=== PATIENT | male | born 1955 | race Caucasian/White ===

== ENCOUNTER → 2021-03-15 | Outpatient (CLI) | payer MEDICARE, BC ==
[2021-03-15 12:07] LABS: HEMOGLOBIN A1c 8.2 %
[2021-03-15 12:34] LABS: ALBUMIN 3.8 GM/DL (3.2-5.2); ALT/SGPT 41 U/L (12-78); BILIRUBIN,TOTAL 0.4 MG/DL (0.2-1.0); BLOOD UREA NITROGEN 13 MG/DL (7-18); CALCIUM LEVEL 9.5 MG/DL (8.8-10.2); CARBON DIOXIDE LEVEL 26 MEQ/L (21-32); CHLORIDE LEVEL 104 MEQ/L (98-107); CHOLESTEROL LEVEL 96 MG/DL (<200); CREATININE FOR GFR 0.57 MG/DL (0.70-1.30); FOLATE 7.4 NG/ML; GLOMERULAR FILTRATION RATE > 60.0 (>49); GLUCOSE, FASTING 183 MG/DL (70-100); HDL CHOLESTEROL 40 MG/DL (>40); LDL CHOLESTEROL 37 MG/DL (<100); NON-HDL-C 56 MG/DL; POTASSIUM SERUM 4.1 MEQ/L (3.5-5.1); SODIUM LEVEL 136 MEQ/L (136-145); TOTAL PROTEIN 7.1 GM/DL (6.4-8.2); TRIGLYCERIDES LEVEL 94 MG/DL (<150); VITAMIN B12 LEVEL 250 PG/ML
== END ==
LOC: M WUC 09:48
PROVIDERS: ATTEND Nurse Practitioner Family
DX: Z00.00 Encounter for general adult medical examination without abnormal findings (principal); E78.2 Mixed hyperlipidemia; E11.9 Type 2 diabetes mellitus without complications; I10 Essential (primary) hypertension

== ENCOUNTER → 2021-03-15 | Outpatient (CLI) | payer MEDICARE, BC ==
[2021-03-15 11:45] LABS: BASO # 0.1 10^3/uL (0.0-0.2); BASO % 0.7 % (0.0-1.0); EOS # 0.4 10^3/uL (0.0-0.5); EOS % 3.4 % (0.0-3.0); HEMATOCRIT 47.5 % (42.0-52.0); HEMOGLOBIN 14.4 g/dl (13.5-17.5); LYMPH % 16.2 % (24.0-44.0); MEAN CORPUSCULAR HGB CONC 30.3 g/dl (32.0-36.5); MEAN CORPUSCULAR VOLUME 79.3 fl (80.0-96.0); MONO # 1.2 10^3/uL (0.0-0.8); MONO % 9.5 % (2.0-8.0); NEUTROPHILS # 8.6 10^3/uL (1.5-8.5); NEUTROPHILS % 69.8 % (36.0-66.0); PLATELET COUNT, AUTOMATED 280 10^3/uL (150-450); RED BLOOD COUNT 5.99 10^6/uL (4.30-6.10); WHITE BLOOD COUNT 12.3 10^3/uL (4.0-10.0)
[2021-03-15 12:31] LABS: ALBUMIN 3.7 GM/DL (3.2-5.2); ALT/SGPT 43 U/L (12-78); BILIRUBIN,DIRECT 0.2 MG/DL (0.0-0.2); BILIRUBIN,TOTAL 0.4 MG/DL (0.2-1.0); BLOOD UREA NITROGEN 15 MG/DL (7-18); CARBON DIOXIDE LEVEL 27 MEQ/L (21-32); CHLORIDE LEVEL 104 MEQ/L (98-107); CHOLESTEROL LEVEL 98 MG/DL (<200); CHOLESTEROL RISK RATIO 2.512 (<5); CREATININE FOR GFR 0.56 MG/DL (0.70-1.30); GLOMERULAR FILTRATION RATE > 60.0 (>49); GLUCOSE, FASTING 184 MG/DL (70-100); HDL CHOLESTEROL 39 MG/DL (>40); HEPATITIS B SURFACE ANTIBODY NEGATIVE (POSITIVE); LDL CHOLESTEROL 41 MG/DL (<100); NON-HDL-C 59 MG/DL; POTASSIUM SERUM 4.2 MEQ/L (3.5-5.1); SODIUM LEVEL 137 MEQ/L (136-145); TOTAL PROTEIN 7.1 GM/DL (6.4-8.2); TRIGLYCERIDES LEVEL 89 MG/DL (<150)
[2021-03-15 12:36] LABS: HEPATITIS B SURFACE ANTIGEN NEGATIVE (NEGATIVE)
== END ==
LOC: M WUC 09:52
PROVIDERS: ATTEND Physician Assistant
DX: L40.0 Psoriasis vulgaris (principal); E78.2 Mixed hyperlipidemia; E11.9 Type 2 diabetes mellitus without complications; I10 Essential (primary) hypertension

== ENCOUNTER → 2021-04-27 | Outpatient (CLI) | payer MEDICARE, BC ==
--- NOTE | 2021-04-27 10:31 | REP ---
INDICATION: CONTUSION OF RIGHT FOOT, INITIAL ENCOUNTER COMPARISON: None. TECHNIQUE: AP, lateral, bilateral oblique views right foot. FINDINGS: There is a transverse nondisplaced fracture through the base of the 5th toe proximal phalanx. Remainder of the examination demonstrates age-related osteopenia and degenerative changes. IMPRESSION: Fracture at the base of the 5th toe proximal phalanx.. <Electronically signed by Dandre Moore > 04/27/21 1026
== END ==
LOC: M PLAIMG 09:18
PROVIDERS: ATTEND Family Medicine
DX: S90.31XA Contusion of right foot, initial encounter (principal); W18.30XA Fall on same level, unspecified, initial encounter; Y92.009 Unspecified place in unspecified non-institutional (private) residence as the place of occurrence of the external cause

== ENCOUNTER → 2021-10-19 | Outpatient (REF) | payer MEDICARE, BC ==
[2021-10-19 18:45] LABS: CREATININE, URINE 51.1 MG/DL; MALB URINE SIEMENS 9.1 MG/L; MAU/CREAT RATIO 17.8 MCG/MG (0.0-30.0)
== END ==
LOC: M LAB REF 17:11
PROVIDERS: ATTEND Internal Medicine Endocrinology, Diabetes & Metabolism
DX: E11.65 Type 2 diabetes mellitus with hyperglycemia (principal)

== ENCOUNTER → 2022-08-24 | Outpatient (CLI) | payer MEDICARE | LOC: M PLAIMG 09:59 | PROVIDERS: ATTEND Nurse Practitioner Family | DX: S10.93XA Contusion of unspecified part of neck, initial encounter (principal); V89.2XXA Person injured in unspecified motor-vehicle accident, traffic, initial encounter ==

== ENCOUNTER → 2022-10-13 | Outpatient (CLI) | payer MEDICARE ==
[2022-10-13 11:21] LABS: BASO # 0.1 10^3/uL (0.0-0.2); BASO % 0.5 % (0.0-1.0); EOS # 0.5 10^3/uL (0.0-0.5); EOS % 4.3 % (0.0-3.0); HEMATOCRIT 40.4 % (42.0-52.0); HEMOGLOBIN 12.7 g/dl (13.5-17.5); LYMPH # 2.4 10^3/uL (1.5-5.0); LYMPH % 20.3 % (24.0-44.0); MEAN CORPUSCULAR HEMOGLOBIN 24.5 pg (27.0-33.0); MEAN CORPUSCULAR HGB CONC 31.4 g/dl (32.0-36.5); MONO # 0.9 10^3/uL (0.0-0.8); MONO % 7.9 % (2.0-8.0); NEUTROPHILS # 7.8 10^3/uL (1.5-8.5); NEUTROPHILS % 66.4 % (36.0-66.0); PLATELET COUNT, AUTOMATED 278 10^3/uL (150-450); RED BLOOD COUNT 5.18 10^6/uL (4.30-6.10); WHITE BLOOD COUNT 11.7 10^3/uL (4.0-10.0)
[2022-10-13 11:34] LABS: ALBUMIN 3.5 G/DL (3.2-5.2); BLOOD UREA NITROGEN 13 MG/DL (9-23); CALCIUM LEVEL 8.8 MG/DL (8.3-10.6); CARBON DIOXIDE LEVEL 28 MMOL/L (20-31); CHLORIDE LEVEL 104 MMOL/L (98-107); CREATININE FOR GFR 0.45 MG/DL (0.70-1.30); GLOMERULAR FILTRATION RATE > 60.0 (>49); GLUCOSE, FASTING 261 MG/DL (74-106); POTASSIUM SERUM 4.3 MMOL/L (3.5-5.1); SODIUM LEVEL 136 MMOL/L (136-145)
[2022-10-13 12:07] LABS: HIV 1&2 SCREEN CENTAUR NEGATIVE (NEGATIVE)
== END ==
LOC: M LAB 10:07
PROVIDERS: ATTEND Nurse Practitioner Family
DX: Z79.899 Other long term (current) drug therapy (principal)

== ENCOUNTER → 2022-10-17 | Outpatient (CLI) | payer MEDICARE | LOC: M RAD 10:35 | PROVIDERS: ATTEND Nurse Practitioner Family | DX: Z87.891 Personal history of nicotine dependence (principal) ==

== ENCOUNTER → 2023-02-12 | Outpatient (CLI) | payer MEDICARE ==
[2023-02-12 11:01] LABS: ALBUMIN 3.9 G/DL (3.2-5.2); ALKALINE PHOSPHATASE 119 U/L (46-116); ALT/SGPT 12 U/L (7.0-40); AST/SGOT 12 U/L (<34); BILIRUBIN,TOTAL 0.4 MG/DL (0.3-1.2); BLOOD UREA NITROGEN 10 MG/DL (9-23); CALCIUM LEVEL 9.2 MG/DL (8.3-10.6); CARBON DIOXIDE LEVEL 30 MMOL/L (20-31); CHLORIDE LEVEL 103 MMOL/L (98-107); CHOLESTEROL LEVEL 95 MG/DL (<200); CHOLESTEROL RISK RATIO 3.03 (<5); CREATININE FOR GFR 0.53 MG/DL (0.70-1.30); GLOMERULAR FILTRATION RATE > 60.0 (>49); GLUCOSE, FASTING 167 MG/DL (74-106); HDL CHOLESTEROL 31.3 MG/DL (>40); LDL CHOLESTEROL 40.7 MG/DL (<100); NON-HDL-C 63.7 MG/DL; POTASSIUM SERUM 4.6 MMOL/L (3.5-5.1); SODIUM LEVEL 138 MMOL/L (136-145); TOTAL PROTEIN 6.8 G/DL (5.7-8.2); TRIGLYCERIDES LEVEL 115 MG/DL (<150)
== END ==
LOC: M LAB 09:54
PROVIDERS: ATTEND Nurse Practitioner Family
DX: E78.2 Mixed hyperlipidemia (principal)

== ENCOUNTER → 2023-02-28 | Outpatient (CLI) | payer MEDICARE ==
[~2023-02-28] MED LIST: ISOVUE-370 76% 100ML VIAL As Ordered ONE
== END ==
LOC: M RAD 08:25
PROVIDERS: ATTEND Nurse Practitioner Family
DX: R91.1 Solitary pulmonary nodule (principal)
CPT/HCPCS: 71260; Q9967

== ENCOUNTER → 2023-08-26 | Outpatient (CLI) | payer MEDICARE ==
[2023-08-26 13:54] LABS: ALBUMIN 3.6 G/DL (3.2-5.2); ALKALINE PHOSPHATASE 173 U/L (46-116); ALT/SGPT 14 U/L (7.0-40); AST/SGOT 10 U/L (<34); BILIRUBIN,DIRECT 0.2 MG/DL (<0.4); BILIRUBIN,TOTAL 0.4 MG/DL (0.3-1.2); BLOOD UREA NITROGEN 11 MG/DL (9-23); CALCIUM LEVEL 8.9 MG/DL (8.3-10.6); CARBON DIOXIDE LEVEL 29 MMOL/L (20-31); CHLORIDE LEVEL 103 MMOL/L (98-107); CHOLESTEROL LEVEL 96 MG/DL (<200); CHOLESTEROL RISK RATIO 2.97 (<5); CREATININE FOR GFR 0.51 MG/DL (0.70-1.30); GLOMERULAR FILTRATION RATE > 60.0 (>49); GLUCOSE, FASTING 331 MG/DL (74-106); HDL CHOLESTEROL 32.3 MG/DL (>40); LDL CHOLESTEROL 47.9 MG/DL (<100); NON-HDL-C 63.7 MG/DL; POTASSIUM SERUM 4.3 MMOL/L (3.5-5.1); SODIUM LEVEL 140 MMOL/L (136-145); TOTAL PROTEIN 6.5 G/DL (5.7-8.2); TRIGLYCERIDES LEVEL 79 MG/DL (<150)
[2023-08-26 13:55] LABS: HEPATITIS B SURFACE ANTIBODY NEGATIVE (POSITIVE)
[2023-08-26 13:57] LABS: BASO # 0.1 10^3/uL (0.0-0.2); BASO % 0.5 % (0.0-1.0); EOS # 0.5 10^3/uL (0.0-0.5); EOS % 4.3 % (0.0-3.0); HEMOGLOBIN 14.5 g/dl (13.5-17.5); LYMPH # 2.2 10^3/uL (1.5-5.0); LYMPH % 19.5 % (24.0-44.0); MEAN CORPUSCULAR HEMOGLOBIN 24.5 pg (27.0-33.0); MEAN CORPUSCULAR HGB CONC 31.5 g/dl (32.0-36.5); MEAN CORPUSCULAR VOLUME 77.8 fl (80.0-96.0); MONO # 1.1 10^3/uL (0.0-0.8); MONO % 9.3 % (2.0-8.0); NEUTROPHILS # 7.4 10^3/uL (1.5-8.5); PLATELET COUNT, AUTOMATED 287 10^3/uL (150-450); RED BLOOD COUNT 5.91 10^6/uL (4.30-6.10); WHITE BLOOD COUNT 11.3 10^3/uL (4.0-10.0)
[2023-08-26 14:30] LABS: HEPATITIS C VIRUS ABY INDEX 0.04 INDEX (<0.8)
[2023-08-27 08:10] LABS: HEPATITIS B CORE ANTIBODY IGG Negative (Negative); LDL DIRECT 53 mg/dL (0-99)
== END ==
LOC: M PLALAB 09:27
PROVIDERS: ATTEND Physician Assistant
DX: L40.0 Psoriasis vulgaris (principal)

== ENCOUNTER → 2024-02-06 | Outpatient (CLI) | payer MEDICARE ==
[2024-02-06 11:32] LABS: MALB URINE SIEMENS < 3.0 MG/L
[2024-02-06 11:35] LABS: CREATININE, URINE 56.4 MG/DL; MAU/CREAT RATIO 5.3 MCG/MG (0.0-30.0)
[2024-02-06 11:53] LABS: ALBUMIN 3.5 G/DL (3.2-5.2); ALKALINE PHOSPHATASE 102 U/L (46-116); ALT/SGPT 12 U/L (7.0-40); AST/SGOT 12 U/L (<34); BILIRUBIN,TOTAL 0.4 MG/DL (0.3-1.2); BLOOD UREA NITROGEN 8 MG/DL (9-23); CALCIUM LEVEL 8.9 MG/DL (8.3-10.6); CARBON DIOXIDE LEVEL 29 MMOL/L (20-31); CHLORIDE LEVEL 105 MMOL/L (98-107); CHOLESTEROL LEVEL 76 MG/DL (<200); CHOLESTEROL RISK RATIO 2.66 (<5); CREATININE FOR GFR 0.48 MG/DL (0.70-1.30); GLOMERULAR FILTRATION RATE > 60.0 (>49); GLUCOSE, FASTING 247 MG/DL (74-106); HDL CHOLESTEROL 28.5 MG/DL (>40); LDL CHOLESTEROL 29.5 MG/DL (<100); NON-HDL-C 47.5 MG/DL; POTASSIUM SERUM 4.3 MMOL/L (3.5-5.1); SODIUM LEVEL 139 MMOL/L (136-145); TOTAL PROTEIN 6.3 G/DL (5.7-8.2); TRIGLYCERIDES LEVEL 90 MG/DL (<150)
== END ==
LOC: M LAB 10:17
PROVIDERS: ATTEND Nurse Practitioner Family
DX: E78.2 Mixed hyperlipidemia (principal)

== ENCOUNTER → 2024-03-12 | Outpatient (CLI) | payer MEDICARE ==
[2024-03-12 12:50] LABS: BASO # 0.1 10^3/uL (0.0-0.2); BASO % 0.7 % (0.0-1.0); EOS # 0.2 10^3/uL (0.0-0.5); EOS % 2.7 % (0.0-3.0); HEMATOCRIT 47.4 % (42.0-52.0); HEMOGLOBIN 14.9 g/dl (13.5-17.5); LYMPH # 1.5 10^3/uL (1.5-5.0); LYMPH % 20.6 % (24.0-44.0); MEAN CORPUSCULAR HEMOGLOBIN 24.5 pg (27.0-33.0); MEAN CORPUSCULAR HGB CONC 31.4 g/dl (32.0-36.5); MEAN CORPUSCULAR VOLUME 78.1 fl (80.0-96.0); MONO # 1.6 10^3/uL (0.0-0.8); MONO % 22.9 % (2.0-8.0); NEUTROPHILS # 3.8 10^3/uL (1.5-8.5); NEUTROPHILS % 52.8 % (36.0-66.0); PLATELET COUNT, AUTOMATED 282 10^3/uL (150-450); RED BLOOD COUNT 6.07 10^6/uL (4.30-6.10); WHITE BLOOD COUNT 7.2 10^3/uL (4.0-10.0)
[2024-03-12 13:23] LABS: ALBUMIN 3.4 G/DL (3.2-5.2); ALKALINE PHOSPHATASE 104 U/L (46-116); ALT/SGPT 12 U/L (7.0-40); AST/SGOT 14 U/L (<34); BILIRUBIN,TOTAL 0.5 MG/DL (0.3-1.2); BLOOD UREA NITROGEN 13 MG/DL (9-23); CALCIUM LEVEL 8.9 MG/DL (8.3-10.6); CARBON DIOXIDE LEVEL 26 MMOL/L (20-31); CHLORIDE LEVEL 105 MMOL/L (98-107); CREATININE FOR GFR 0.58 MG/DL (0.70-1.30); GLOMERULAR FILTRATION RATE > 60.0 (>49); GLUCOSE, FASTING 173 MG/DL (74-106); POTASSIUM SERUM 3.6 MMOL/L (3.5-5.1); SODIUM LEVEL 138 MMOL/L (136-145); TOTAL PROTEIN 6.4 G/DL (5.7-8.2)
== END ==
LOC: M PLALAB 08:36
PROVIDERS: ATTEND Nurse Practitioner Family
DX: R19.7 Diarrhea, unspecified (principal)

== ENCOUNTER → 2024-03-13 | Outpatient (CLI) | payer MEDICARE | LOC: M RAD 09:31 | PROVIDERS: ATTEND Nurse Practitioner Family | DX: R19.7 Diarrhea, unspecified (principal) ==

== ENCOUNTER 2024-06-19 09:15 | Inpatient (IN) | payer MEDICARE ==
[~2024-06-19] VITALS: Ht 193 cm; Wt 96.2 kg
[2024-06-19] MEDS ORDERED: JARD1TAB3 PO (09:25)
[2024-06-19] MEDS ORDERED: ATOR80TA59 PO (09:25)
[2024-06-19] MEDS ORDERED: [UNRECOGNIZED DRUG - CODE] (09:25)
[2024-06-19] MEDS ORDERED: GLIM1TAB84 PO (09:25)
[2024-06-19] MEDS ORDERED: GABA-1171 PO (09:25)
[2024-06-19] MEDS: ONDANSETRON 4MG 2ML VIAL IV ONE (09:57)
[2024-06-19] MEDS: MORPHINE 4 MG/ML 1ML VIAL IV ONE (09:57)
[2024-06-19 10:18] LABS: BASO # 0.1 10^3/uL (0.0-0.2); BASO % 0.5 % (0.0-1.0); EOS # 0.3 10^3/uL (0.0-0.5); EOS % 2.1 % (0.0-3.0); HEMATOCRIT 45.5 % (42.0-52.0); HEMOGLOBIN 14.5 g/dl (13.5-17.5); LYMPH # 1.6 10^3/uL (1.5-5.0); LYMPH % 12.9 % (24.0-44.0); MEAN CORPUSCULAR HEMOGLOBIN 24.9 pg (27.0-33.0); MEAN CORPUSCULAR HGB CONC 31.9 g/dl (32.0-36.5); NEUTROPHILS # 9.6 10^3/uL (1.5-8.5); NEUTROPHILS % 75.5 % (36.0-66.0); PLATELET COUNT, AUTOMATED 254 10^3/uL (150-450); RED BLOOD COUNT 5.83 10^6/uL (4.30-6.10); WHITE BLOOD COUNT 12.7 10^3/uL (4.0-10.0)
[2024-06-19 10:39] LABS: INR 1.07; PARTIAL THROMBOPLASTIN TIME 26.4 SECONDS (24.8-34.2); PROTHROMBIN TIME 13.6 SECONDS (12.5-14.5)
[2024-06-19 10:45] LABS: BLOOD UREA NITROGEN 13 MG/DL (9-23); CALCIUM LEVEL 9.2 MG/DL (8.3-10.6); CARBON DIOXIDE LEVEL 26 MMOL/L (20-31); CHLORIDE LEVEL 105 MMOL/L (98-107); CREATININE FOR GFR 0.44 MG/DL (0.70-1.30); GLOMERULAR FILTRATION RATE > 60.0 (>49); GLUCOSE, FASTING 341 MG/DL (74-106); POTASSIUM SERUM 4.7 MMOL/L (3.5-5.1); SODIUM LEVEL 135 MMOL/L (136-145)
[2024-06-19] MEDS: KETOROLAC 30 MG/ML 1ML VIAL IV ONE (11:59)
[2024-06-19] MEDS: INSULIN LISPRO (NovoLOG) PER UNIT SC SCH ×2 (12:00→20:07)
[2024-06-19] MEDS: NS 1,000 ML IV ONE (12:21)
[2024-06-19] MEDS ORDERED: DEXTROSE 50% 50ML SYRINGE IV PRN (12:45)
[2024-06-19] MEDS ORDERED: MAALOX 30 ML SUSP *UDC PO PRN (12:45)
[2024-06-19] MEDS: NS 1,000 ML IV SCH (12:45)
[2024-06-19] MEDS ORDERED: GLUCAGON INJ 1MG VIAL SC PRN (12:45)
[2024-06-19] MEDS ORDERED: GLUCOSE 4 GM CHEW PO PRN (12:45)
[2024-06-19] MEDS ORDERED: MOM 30ML SUSPENSION UDC PO PRN (12:45)
[2024-06-19] MEDS ORDERED: INSU100I24 SQ (13:01)
[2024-06-19] MEDS ORDERED: ECOT81TA5 PO (13:02)
[2024-06-19] MEDS ORDERED: HOME MED LIST COMPLETE! XX SCH (13:15)
[2024-06-19] MEDS: MORPHINE 4 MG/ML 1ML VIAL IV PRN (14:15)
[2024-06-19 14:35] VITALS: BP 131/80; TEMP 97.3; O2SAT 96
[2024-06-19] MEDS: DOCUSATE SODIUM 100MG CAPSULE PO SCH (15:29)
[2024-06-19] MEDS: HEPARIN SOD (PORCINE) 5000UNITS/ML 1ML VIAL/SYRINGE SC SCH (15:30)
[2024-06-19] MEDS: ASPIRIN 81MG ENTERIC TABLET PO SCH (15:30)
[2024-06-19] MEDS: GABAPENTIN 100 MG CAP PO SCH (15:30)
[2024-06-19] MEDS: ACETAMINOPHEN TAB 650MG DOSE (2X325MG) PO PRN (16:26)
[2024-06-19] MEDS: ATORVASTATIN 20 MG TAB PO SCH (20:07)
[2024-06-19 20:27] VITALS: BP 125/65; TEMP 97.5; O2SAT 91
[2024-06-20] VITALS (9 sets, daily range): BP systolic 105–116; BP diastolic 59–64; TEMP 97.2–98.2; O2SAT 89–95
[2024-06-20 06:49] LABS: BASO % 0.4 % (0.0-1.0); EOS # 0.2 10^3/uL (0.0-0.5); EOS % 2.1 % (0.0-3.0); HEMATOCRIT 40.1 % (42.0-52.0); HEMOGLOBIN 12.8 g/dl (13.5-17.5); LYMPH # 1.2 10^3/uL (1.5-5.0); LYMPH % 12.8 % (24.0-44.0); MEAN CORPUSCULAR HEMOGLOBIN 24.9 pg (27.0-33.0); MEAN CORPUSCULAR HGB CONC 31.9 g/dl (32.0-36.5); MEAN CORPUSCULAR VOLUME 77.9 fl (80.0-96.0); MONO # 1.1 10^3/uL (0.0-0.8); MONO % 11.2 % (2.0-8.0); NEUTROPHILS # 7.1 10^3/uL (1.5-8.5); NEUTROPHILS % 73.2 % (36.0-66.0); PLATELET COUNT, AUTOMATED 210 10^3/uL (150-450); RED BLOOD COUNT 5.15 10^6/uL (4.30-6.10); WHITE BLOOD COUNT 9.6 10^3/uL (4.0-10.0)
[2024-06-20 07:18] LABS: BLOOD UREA NITROGEN 10 MG/DL (9-23); CALCIUM LEVEL 8.3 MG/DL (8.3-10.6); CARBON DIOXIDE LEVEL 26 MMOL/L (20-31); CHLORIDE LEVEL 108 MMOL/L (98-107); CREATININE FOR GFR 0.43 MG/DL (0.70-1.30); GLOMERULAR FILTRATION RATE > 60.0 (>49); GLUCOSE, FASTING 177 MG/DL (74-106); MAGNESIUM LEVEL 1.8 MG/DL (1.8-2.4); POTASSIUM SERUM 4.1 MMOL/L (3.5-5.1); SODIUM LEVEL 138 MMOL/L (136-145)
[2024-06-20] MEDS ORDERED: HYDROmorphone HCL 2MG/ML 1ML VIAL As Ordered ONE (13:44)
[2024-06-20] MEDS ORDERED: ACETAMINOPHEN 1000MG 100ML IV BAG As Ordered ONE (13:44)
[2024-06-20] MEDS ORDERED: ONDANSETRON 4MG 2ML VIAL As Ordered ONE (13:44)
[2024-06-20] MEDS ORDERED: ROCURONIUM BROMIDE 50MG/5ML VIAL As Ordered ONE (13:44)
[2024-06-20] MEDS ORDERED: fentaNYL 100 MCG/2 ML INJECTION As Ordered ONE (13:44)
[2024-06-20] MEDS ORDERED: MIDAZOLAM INJ 2MG/2ML VIAL As Ordered ONE (13:45)
[2024-06-20] MEDS ORDERED: KETAMINE HCL 200MG/20ML VIAL As Ordered ONE (13:45)
[2024-06-20] MEDS: ceFAZolin 2 GM/D5W 50 ML IV BAG As Ordered ONE (14:57)
[2024-06-20] MEDS: TRANEXAMIC ACID 100 MG/ML 10ML VIAL As Ordered ONE (15:05)
[2024-06-20] MEDS ORDERED: PHENYLephrine 500MCG 5ML (100MCG/ML) SYRINGE As Ordered ONE (15:14)
[2024-06-20] MEDS ORDERED: SUGAMMADEX SODIUM 500 MG/5 ML VIAL (BRIDION) As Ordered ONE (15:24)
[2024-06-20] MEDS ORDERED: ePHEDrine SULFATE 25 MG/5 ML(5MG/ML) SYRINGE As Ordered ONE (16:04)
[2024-06-20] MEDS ORDERED: CALCIUM CHLORIDE 10% 1 GM/10 ML SYR As Ordered ONE (17:26)
[2024-06-20] MEDS ORDERED: PHENYLEPHRINE 10MG/ML 1ML VIAL As Ordered ONE (17:27)
[2024-06-20] MEDS: VANCOMYCIN 1000MG/20ML VIAL As Ordered ONE (18:15)
[2024-06-20] MEDS ORDERED: METOCLOPRAMIDE INJ 10MG/2ML VIAL IV PRN (18:30)
[2024-06-20] MEDS ORDERED: MEPERIDINE 25 MG/ML 1ML VIAL IV PRN (18:30)
[2024-06-20] MEDS ORDERED: ONDANSETRON 4MG 2ML VIAL IV PRN (18:30)
[2024-06-20] MEDS ORDERED: oxyCODONE 5MG TAB PO PRN (18:30)
[2024-06-20] MEDS ORDERED: fentaNYL 100 MCG/2 ML INJECTION IV PRN (18:30)
[2024-06-20] MEDS ORDERED: diphenhydrAMINE 50MG/ML VIAL IV PRN (18:30)
[2024-06-20] MEDS ORDERED: HYDROMORPHONE HCL 0.5 MG/ 0.5 ML SYRINGE IV PRN (18:30)
[2024-06-20] MEDS ORDERED: GLUCOSE 4 GM CHEW PO PRN (18:50)
[2024-06-20] MEDS ORDERED: ceFAZolin SOD 2 GM in IV 1 EA IV SCH (18:50)
[2024-06-20] MEDS ORDERED: DEXTROSE 50% 50ML SYRINGE IV PRN (18:50)
[2024-06-20] MEDS ORDERED: GLUCAGON INJ 1MG VIAL SC PRN (18:50)
[2024-06-20] MEDS ORDERED: SENNA 8.6 MG TAB (SENOKOT) PO PRN (18:50)
[2024-06-20] MEDS: INSULIN LISPRO (NovoLOG) PER UNIT SC PRN (18:55)
[2024-06-20 19:05] LABS: HEMATOCRIT 35.6 % (42.0-52.0); HEMOGLOBIN 11.1 g/dl (13.5-17.5)
[2024-06-20] MEDS: ceFAZolin SOD 2 GM in IV 1 EA IV SCH (21:28)
[2024-06-20] MEDS: ASPIRIN 81MG ENTERIC TABLET PO SCH (21:30)
[2024-06-20] MEDS: LR 1,000 ML IV SCH (21:56)
[2024-06-20] MEDS ORDERED: LANTINJ4 SC (22:22)
[2024-06-20] MEDS ORDERED: ZOLO100T PO (22:22)
[2024-06-20] MEDS: ONDANSETRON 4MG 2ML VIAL IV PRN (23:40)
[2024-06-21] MEDS: ACETAMINOPHEN TAB 650MG DOSE (2X325MG) PO SCH
[2024-06-21 00:30] VITALS: BP 105/59; TEMP 97.7; O2SAT 95
[2024-06-21 04:30] VITALS: BP 108/59; TEMP 98.1; O2SAT 95
[2024-06-21] MEDS ORDERED: MIRALAX *UNIT DOSE* 17GM PACKET PO PRN (07:10)
[2024-06-21] MEDS ORDERED: MOM 30ML SUSPENSION UDC PO PRN (07:10)
[2024-06-21 07:17] LABS: BASO % 0.2 % (0.0-1.0); EOS % 0.1 % (0.0-3.0); HEMATOCRIT 30.7 % (42.0-52.0); HEMOGLOBIN 9.6 g/dl (13.5-17.5); LYMPH # 0.7 10^3/uL (1.5-5.0); LYMPH % 5.6 % (24.0-44.0); MEAN CORPUSCULAR HEMOGLOBIN 24.9 pg (27.0-33.0); MEAN CORPUSCULAR HGB CONC 31.3 g/dl (32.0-36.5); MEAN CORPUSCULAR VOLUME 79.7 fl (80.0-96.0); MONO % 14.9 % (2.0-8.0); NEUTROPHILS # 10.4 10^3/uL (1.5-8.5); NEUTROPHILS % 78.6 % (36.0-66.0); PLATELET COUNT, AUTOMATED 186 10^3/uL (150-450); RED BLOOD COUNT 3.85 10^6/uL (4.30-6.10); WHITE BLOOD COUNT 13.2 10^3/uL (4.0-10.0)
[2024-06-21] MEDS: PERCOCET 5MG/325MG TAB PO PRN (07:31)
[2024-06-21] MEDS ORDERED: MORPHINE 2 MG/ML 1ML VIAL IV PRN (07:35)
[2024-06-21 07:48] LABS: BLOOD UREA NITROGEN 9 MG/DL (9-23); CALCIUM LEVEL 7.6 MG/DL (8.3-10.6); CARBON DIOXIDE LEVEL 20 MMOL/L (20-31); CHLORIDE LEVEL 107 MMOL/L (98-107); CREATININE FOR GFR 0.42 MG/DL (0.70-1.30); GLOMERULAR FILTRATION RATE > 60.0 (>49); GLUCOSE, FASTING 213 MG/DL (74-106); MAGNESIUM LEVEL 1.5 MG/DL (1.8-2.4); SODIUM LEVEL 135 MMOL/L (136-145)
[2024-06-21] MEDS: SENOKOT S TAB PO SCH (08:04)
[2024-06-21] MEDS: ASCORBIC ACID 500 MG TAB PO SCH (08:04)
[2024-06-21] MEDS: FERROUS SULFATE 325MG TAB PO SCH (08:04)
[2024-06-21] MEDS: LIDOCAINE 5% (LIDODERM) PATCH TD SCH (08:05)
[2024-06-21 08:18] VITALS: BP 103/59; TEMP 97.2; O2SAT 92
[2024-06-21] MEDS: MAG SULF 1GM/100ML (MAG RUN) 1 GM in IV 1 EA IV SCH (09:49)
[2024-06-21 12:00] VITALS: BP 110/58; TEMP 97.3; O2SAT 96
[2024-06-21 20:39] VITALS: BP 113/59; TEMP 97.7; O2SAT 93
[2024-06-21] MEDS: CEFDINIR 300 MG CAP (OMNICEF) PO SCH (20:55)
[2024-06-22 04:03] VITALS: BP 113/59; TEMP 97.7; O2SAT 92
[2024-06-22 06:12] LABS: BASO % 0.2 % (0.0-1.0); EOS # 0.1 10^3/uL (0.0-0.5); EOS % 0.8 % (0.0-3.0); HEMATOCRIT 27.2 % (42.0-52.0); HEMOGLOBIN 8.6 g/dl (13.5-17.5); LYMPH # 0.8 10^3/uL (1.5-5.0); LYMPH % 7.6 % (24.0-44.0); MEAN CORPUSCULAR HEMOGLOBIN 25.3 pg (27.0-33.0); MEAN CORPUSCULAR HGB CONC 31.6 g/dl (32.0-36.5); MONO # 1.8 10^3/uL (0.0-0.8); NEUTROPHILS # 8.2 10^3/uL (1.5-8.5); NEUTROPHILS % 74.6 % (36.0-66.0); PLATELET COUNT, AUTOMATED 169 10^3/uL (150-450)
[2024-06-22 06:32] LABS: BLOOD UREA NITROGEN 11 MG/DL (9-23); CARBON DIOXIDE LEVEL 23 MMOL/L (20-31); CHLORIDE LEVEL 104 MMOL/L (98-107); CREATININE FOR GFR 0.46 MG/DL (0.70-1.30); GLOMERULAR FILTRATION RATE > 60.0 (>49); GLUCOSE, FASTING 171 MG/DL (74-106); MAGNESIUM LEVEL 1.8 MG/DL (1.8-2.4); POTASSIUM SERUM 3.8 MMOL/L (3.5-5.1); SODIUM LEVEL 133 MMOL/L (136-145)
[2024-06-22] MEDS: VITAMIN D 1,000 INTERNATIONAL UNITS TABLET PO SCH (08:37)
[2024-06-22 12:00] VITALS: BP 118/60; TEMP 97.7; O2SAT 94
[2024-06-22] MEDS: MAG SULF 1GM/100ML (MAG RUN) 1 GM in IV 1 EA IV ONE (13:13)
[2024-06-22] MEDS ORDERED: CYCLOBENZAPRINE 10MG TABLET PO PRN (16:55)
[2024-06-22] MEDS: NS 1,000 ML IV SCH (17:17)
[2024-06-22 20:00] VITALS: BP 123/61; TEMP 98.1; O2SAT 92
[2024-06-23 04:04] VITALS: BP 123/62; TEMP 98.1; O2SAT 94
[2024-06-23] MEDS: SUCRALFATE SUSP 1GM/10ML UD PO SCH (08:58)
[2024-06-23] MEDS: PANTOPRAZOLE 40MG VIAL IV SCH (08:59)
[2024-06-23 09:08] LABS: BASO % 0.3 % (0.0-1.0); EOS % 0.4 % (0.0-3.0); HEMATOCRIT 27.2 % (42.0-52.0); HEMOGLOBIN 8.6 g/dl (13.5-17.5); LYMPH # 0.8 10^3/uL (1.5-5.0); MEAN CORPUSCULAR HEMOGLOBIN 25.4 pg (27.0-33.0); MEAN CORPUSCULAR HGB CONC 31.6 g/dl (32.0-36.5); MEAN CORPUSCULAR VOLUME 80.2 fl (80.0-96.0); MONO # 1.4 10^3/uL (0.0-0.8); MONO % 13.9 % (2.0-8.0); NEUTROPHILS # 7.5 10^3/uL (1.5-8.5); NEUTROPHILS % 76.5 % (36.0-66.0); PLATELET COUNT, AUTOMATED 201 10^3/uL (150-450); RED BLOOD COUNT 3.39 10^6/uL (4.30-6.10); WHITE BLOOD COUNT 9.8 10^3/uL (4.0-10.0)
[2024-06-23 09:37] LABS: BLOOD UREA NITROGEN 11 MG/DL (9-23); CALCIUM LEVEL 7.9 MG/DL (8.3-10.6); CARBON DIOXIDE LEVEL 23 MMOL/L (20-31); CHLORIDE LEVEL 105 MMOL/L (98-107); CREATININE FOR GFR 0.38 MG/DL (0.70-1.30); GLOMERULAR FILTRATION RATE > 60.0 (>49); GLUCOSE, FASTING 194 MG/DL (74-106); MAGNESIUM LEVEL 1.8 MG/DL (1.8-2.4); POTASSIUM SERUM 3.6 MMOL/L (3.5-5.1); SODIUM LEVEL 138 MMOL/L (136-145)
[2024-06-23] MEDS: MAG SULF 1GM/100ML (MAG RUN) 1 GM in IV 1 EA IV ONE (11:36)
[2024-06-23] MEDS: LACTULOSE 20GM/30ML SYRUP UDC PO SCH (11:36)
[2024-06-23 12:00] VITALS: BP 122/63; TEMP 97.2; O2SAT 95
[2024-06-23 19:50] VITALS: BP 121/63; TEMP 97.9; O2SAT 96
[2024-06-23] MEDS: PERCOCET 5MG/325MG TAB PO PRN (21:28)
[2024-06-24 05:03] VITALS: BP 129/63; TEMP 97.5; O2SAT 97
[2024-06-24 06:14] LABS: BASO % 0.3 % (0.0-1.0); EOS # 0.2 10^3/uL (0.0-0.5); EOS % 2.6 % (0.0-3.0); HEMATOCRIT 25.5 % (42.0-52.0); HEMOGLOBIN 8.2 g/dl (13.5-17.5); LYMPH # 1.2 10^3/uL (1.5-5.0); LYMPH % 16.4 % (24.0-44.0); MEAN CORPUSCULAR HEMOGLOBIN 25.3 pg (27.0-33.0); MEAN CORPUSCULAR HGB CONC 32.2 g/dl (32.0-36.5); MEAN CORPUSCULAR VOLUME 78.7 fl (80.0-96.0); NEUTROPHILS # 4.9 10^3/uL (1.5-8.5); NEUTROPHILS % 66.9 % (36.0-66.0); PLATELET COUNT, AUTOMATED 206 10^3/uL (150-450); RED BLOOD COUNT 3.24 10^6/uL (4.30-6.10); WHITE BLOOD COUNT 7.3 10^3/uL (4.0-10.0)
[2024-06-24 06:44] LABS: BLOOD UREA NITROGEN 10 MG/DL (9-23); CARBON DIOXIDE LEVEL 29 MMOL/L (20-31); CHLORIDE LEVEL 106 MMOL/L (98-107); CREATININE FOR GFR 0.36 MG/DL (0.70-1.30); GLOMERULAR FILTRATION RATE > 60.0 (>49); GLUCOSE, FASTING 199 MG/DL (74-106); MAGNESIUM LEVEL 1.8 MG/DL (1.8-2.4); POTASSIUM SERUM 3.4 MMOL/L (3.5-5.1); SODIUM LEVEL 139 MMOL/L (136-145)
[2024-06-24] MEDS: POTASSIUM CHLORIDE 10MEQ SR TABLET PO ONE (08:12)
[2024-06-24 12:00] VITALS: BP 118/56; TEMP 97.9; O2SAT 98
[2024-06-24] MEDS: LEVEMIR (INSULIN DETEMIR) 1 UNITS/0.01ML SC SCH (12:13)
[2024-06-24] MEDS ORDERED: VITAD1000T PO (14:40)
[2024-06-24] MEDS ORDERED: PERCOCET PO (14:40)
[2024-06-24] MEDS ORDERED: PROT1TAB2 PO (14:40)
[2024-06-24] MEDS ORDERED: FERR1TAB8 PO (14:40)
[2024-06-24] MEDS ORDERED: SENN-52 PO (14:40)
[2024-06-24] MEDS ORDERED: SUCR1ORA PO (14:40)
[2024-06-24] MEDS ORDERED: INSUHUMDS SC (14:40)
[2024-06-24] MEDS ORDERED: INSUDET SC (14:40)
[2024-06-24] MEDS ORDERED: ASPI81TAEC PO (14:40)
[2024-06-24] MEDS ORDERED: CEFD300CAP PO (14:40)
[2024-06-24] MEDS ORDERED: CYCL10TA20 PO (14:40)
[2024-06-24] MEDS ORDERED: ASCO50TA PO (14:40)
== END 2024-06-24 16:35 | DRG 522 ==
LOC: M ED 09:15 → M ED INP 12:42 → M MS5PR 14:32
PROVIDERS: ADMIT Internal Medicine; ATTEND Internal Medicine
PROC: 0SRB0JZ Replacement of Left Hip Joint with Synthetic Substitute, Open Approach (ICD-10-PCS; principal; 2024-06-20 09:00)
DX: S72.042A Displaced fracture of base of neck of left femur, initial encounter for closed fracture (principal); S32.050A Wedge compression fracture of fifth lumbar vertebra, initial encounter for closed fracture; S32.040A Wedge compression fracture of fourth lumbar vertebra, initial encounter for closed fracture; S32.030A Wedge compression fracture of third lumbar vertebra, initial encounter for closed fracture; E87.1 Hypo-osmolality and hyponatremia; E11.42 Type 2 diabetes mellitus with diabetic polyneuropathy; E78.5 Hyperlipidemia, unspecified; F41.9 Anxiety disorder, unspecified; L40.9 Psoriasis, unspecified; J44.9 Chronic obstructive pulmonary disease, unspecified; F17.210 Nicotine dependence, cigarettes, uncomplicated; V86.49XA Person injured while boarding or alighting from other special all-terrain or other off-road motor vehicle, initial encounter; D64.9 Anemia, unspecified; E83.42 Hypomagnesemia; Z79.899 Other long term (current) drug therapy; Z79.84 Long term (current) use of oral hypoglycemic drugs; K59.00 Constipation, unspecified; E87.6 Hypokalemia; E11.65 Type 2 diabetes mellitus with hyperglycemia; X58.XXXA Exposure to other specified factors, initial encounter; Y92.9 Unspecified place or not applicable

== ENCOUNTER 2024-06-24 15:50 | Inpatient (IN) | payer MEDICARE ==
[~2024-06-24] VITALS: Ht 193 cm; Wt 93.1 kg
[~2024-06-24 15:50] MED LIST changes: +ASCO50TA PO; +ASPI81TAEC PO; +ATOR80TA59 PO; +CEFD300CAP PO; +CYCL10TA20 PO; +ECOT81TA5 PO; +FERR1TAB8 PO; +GABA-1171 PO; +GLIM1TAB84 PO; +INSU100I24 SQ; +INSUDET SC; +INSUHUMDS SC; -ISOVUE-370 76% 100ML VIAL As Ordered ONE; +JARD1TAB3 PO; +LANTINJ4 SC; +PERCOCET PO; +PROT1TAB2 PO; +SENN-52 PO; +SUCR1ORA PO; +VITAD1000T PO; +ZOLO100T PO; +[UNRECOGNIZED DRUG - CODE]
[2024-06-24] MEDS ORDERED: GLUCAGON INJ 1MG VIAL SC PRN (16:10)
[2024-06-24] MEDS ORDERED: DEXTROSE 50% 50ML SYRINGE IV PRN (16:10)
[2024-06-24] MEDS ORDERED: GLUCOSE 4 GM CHEW PO PRN (16:10)
[2024-06-24] MEDS ORDERED: BISACODYL 5MG TAB PO PRN (16:20)
[2024-06-24] MEDS ORDERED: MAALOX 30 ML SUSP *UDC PO PRN (16:20)
[2024-06-24] MEDS ORDERED: MIRALAX *UNIT DOSE* 17GM PACKET PO PRN (16:20)
[2024-06-24] MEDS ORDERED: MOM 30ML SUSPENSION UDC PO PRN (16:20)
[2024-06-24 16:42] VITALS: BP 133/61; TEMP 97.2; O2SAT 97
[2024-06-24] MEDS: SUCRALFATE SUSP 1GM/10ML UD PO SCH (17:30)
[2024-06-24] MEDS: INSULIN LISPRO (NovoLOG) PER UNIT SC SCH ×2 (18:01→19:54)
[2024-06-24] MEDS: PERCOCET 5MG/325MG TAB PO PRN (18:04)
[2024-06-24] MEDS: SENOKOT S TAB PO SCH (19:55)
[2024-06-24 20:00] VITALS: BP 132/62; TEMP 97.7; O2SAT 97
[2024-06-24] MEDS: CEFDINIR 300 MG CAP (OMNICEF) PO SCH (20:48)
[2024-06-24] MEDS: GABAPENTIN 100 MG CAP PO SCH (20:49)
[2024-06-24] MEDS: ASPIRIN 81MG ENTERIC TABLET PO SCH (20:49)
[2024-06-24] MEDS: HEPARIN SOD (PORCINE) 5000UNITS/ML 1ML VIAL/SYRINGE SC SCH (20:50)
[2024-06-24] MEDS: ATORVASTATIN 20 MG TAB PO SCH (20:50)
[2024-06-24] MEDS: LEVEMIR (INSULIN DETEMIR) 1 UNITS/0.01ML SC SCH (20:52)
[2024-06-25] VITALS (12 sets, daily range): BP systolic 119–148; BP diastolic 56–68; TEMP 96.3–98.9; O2SAT 94–99
[2024-06-25] MEDS: PERCOCET 5MG/325MG TAB PO PRN (00:26)
[2024-06-25 02:30] LABS: HEMATOCRIT 23.7 % (42.0-52.0); HEMOGLOBIN 7.6 g/dl (13.5-17.5); MEAN CORPUSCULAR HEMOGLOBIN 25.2 pg (27.0-33.0); MEAN CORPUSCULAR HGB CONC 32.1 g/dl (32.0-36.5); MEAN CORPUSCULAR VOLUME 78.7 fl (80.0-96.0); PLATELET COUNT, AUTOMATED 221 10^3/uL (150-450); RED BLOOD COUNT 3.01 10^6/uL (4.30-6.10); WHITE BLOOD COUNT 6.6 10^3/uL (4.0-10.0)
[2024-06-25 02:50] LABS: BLOOD UREA NITROGEN 9 MG/DL (9-23); CALCIUM LEVEL 7.8 MG/DL (8.3-10.6); CARBON DIOXIDE LEVEL 30 MMOL/L (20-31); CHLORIDE LEVEL 106 MMOL/L (98-107); CREATININE FOR GFR 0.41 MG/DL (0.70-1.30); GLOMERULAR FILTRATION RATE > 60.0 (>49); GLUCOSE, FASTING 240 MG/DL (74-106); MAGNESIUM LEVEL 1.7 MG/DL (1.8-2.4); POTASSIUM SERUM 3.8 MMOL/L (3.5-5.1); SODIUM LEVEL 138 MMOL/L (136-145)
[2024-06-25 06:20] LABS: PERCENT SATURATION 8.2 % (19.7-50.0)
[2024-06-25 06:23] LABS: FERRITIN 67.1 NG/ML (10.5-307.3)
[2024-06-25] MEDS: SERTRALINE 100 MG TAB PO SCH (07:24)
[2024-06-25] MEDS: VITAMIN D 1,000 INTERNATIONAL UNITS TABLET PO SCH (07:24)
[2024-06-25] MEDS: PANTOPRAZOLE 40MG TAB (PROTONIX) PO SCH (07:24)
[2024-06-25] MEDS: ASCORBIC ACID 500 MG TAB PO SCH (07:25)
[2024-06-25] MEDS: FERROUS SULFATE 325MG TAB PO SCH (07:25)
[2024-06-25] MEDS: LIDOCAINE 5% (LIDODERM) PATCH TD SCH (07:31)
[2024-06-25] MEDS: MAG SULF 1GM/100ML (MAG RUN) 1 GM in IV 1 EA IV ONE (07:33)
[2024-06-25] MEDS: SENOKOT S TAB PO SCH (09:00)
[2024-06-25] MEDS: ACETAMINOPHEN TAB 650MG DOSE (2X325MG) PO PRN (09:16)
[2024-06-25] MEDS: LEVEMIR (INSULIN DETEMIR) 1 UNITS/0.01ML SC ONE (10:11)
[2024-06-25] MEDS: CYCLOBENZAPRINE 10MG TABLET PO PRN (12:13)
[2024-06-25] MEDS: ACETAMINOPHEN 500 MG TAB PO ONE (12:57)
[2024-06-25] MEDS: LEVEMIR (INSULIN DETEMIR) 1 UNITS/0.01ML SC SCH (20:04)
[2024-06-25] MEDS: ACETAMINOPHEN 500 MG TAB PO SCH (20:05)
[2024-06-25] MEDS: traMADol 50 MG TAB PO PRN (20:06)
[2024-06-25] MEDS ORDERED: ACETAMINOPHEN 500 MG TAB PO SCH (21:00)
[2024-06-26 04:00] VITALS: BP 134/70; TEMP 98.5; O2SAT 94
[2024-06-26 06:05] LABS: BASO % 0.6 % (0.0-1.0); EOS # 0.3 10^3/uL (0.0-0.5); EOS % 4.5 % (0.0-3.0); HEMATOCRIT 28.7 % (42.0-52.0); HEMOGLOBIN 9.3 g/dl (13.5-17.5); LYMPH # 1.5 10^3/uL (1.5-5.0); LYMPH % 23.4 % (24.0-44.0); MEAN CORPUSCULAR HEMOGLOBIN 25.5 pg (27.0-33.0); MEAN CORPUSCULAR HGB CONC 32.4 g/dl (32.0-36.5); MEAN CORPUSCULAR VOLUME 78.6 fl (80.0-96.0); MONO # 0.8 10^3/uL (0.0-0.8); MONO % 13.2 % (2.0-8.0); NEUTROPHILS # 3.5 10^3/uL (1.5-8.5); NEUTROPHILS % 57.2 % (36.0-66.0); PLATELET COUNT, AUTOMATED 254 10^3/uL (150-450); RED BLOOD COUNT 3.65 10^6/uL (4.30-6.10); WHITE BLOOD COUNT 6.2 10^3/uL (4.0-10.0)
[2024-06-26 06:16] LABS: ALBUMIN 2.2 G/DL (3.2-5.2); ALKALINE PHOSPHATASE 76 U/L (46-116); ALT/SGPT 18 U/L (7.0-40); AST/SGOT 17 U/L (<34); BILIRUBIN,TOTAL 0.7 MG/DL (0.3-1.2); BLOOD UREA NITROGEN 9 MG/DL (9-23); CALCIUM LEVEL 8.1 MG/DL (8.3-10.6); CARBON DIOXIDE LEVEL 30 MMOL/L (20-31); CHLORIDE LEVEL 106 MMOL/L (98-107); CREATININE FOR GFR 0.37 MG/DL (0.70-1.30); GLOMERULAR FILTRATION RATE > 60.0 (>49); GLUCOSE, FASTING 179 MG/DL (74-106); POTASSIUM SERUM 3.8 MMOL/L (3.5-5.1); SODIUM LEVEL 139 MMOL/L (136-145); TOTAL PROTEIN 4.9 G/DL (5.7-8.2)
[2024-06-26] MEDS: traMADol 50 MG TAB PO PRN (08:36)
[2024-06-26] MEDS: traMADol 50 MG TAB PO ONE (13:04)
[2024-06-26 13:36] VITALS: BP 121/63; TEMP 97.4; O2SAT 95
[2024-06-26] MEDS ORDERED: HOME MED LIST COMPLETE! XX ONE (16:15)
[2024-06-26 20:00] VITALS: BP 115/67; TEMP 97.1; O2SAT 97
[2024-06-26] MEDS: HEPARIN SOD (PORCINE) 5000UNITS/ML 1ML VIAL/SYRINGE SC SCH (20:51)
[2024-06-26] MEDS: METOCLOPRAMIDE 5 MG TAB PO SCH (20:52)
[2024-06-27 04:00] VITALS: BP 129/74; TEMP 98.1; O2SAT 97
[2024-06-27 12:00] VITALS: BP 128/58; TEMP 97.9; O2SAT 97
[2024-06-27 20:00] VITALS: BP 113/58; TEMP 97.4; O2SAT 97
[2024-06-28 04:00] VITALS: BP 122/69; TEMP 97.9; O2SAT 97
[2024-06-28 12:00] VITALS: BP 123/64; TEMP 97.2; O2SAT 96
[2024-06-28 20:00] VITALS: BP 128/71; TEMP 97.8; O2SAT 96
[2024-06-29 04:00] VITALS: BP 134/73; TEMP 97; O2SAT 98
[2024-06-29 12:00] VITALS: BP 111/60; TEMP 97.3; O2SAT 98
[2024-06-29 20:00] VITALS: BP 141/95; TEMP 97.7; O2SAT 98
[2024-06-30 04:00] VITALS: BP 128/68; TEMP 97.9; O2SAT 97
[2024-06-30] MEDS: SIMETHICONE 80MG CHEW TAB PO PRN (08:09)
[2024-06-30] MEDS: ONDANSETRON 4MG TAB PO PRN (08:09)
[2024-06-30 12:00] VITALS: BP 107/70; TEMP 98.2; O2SAT 95
[2024-06-30] MEDS: NAPROXEN 250 MG TAB PO ONE (12:34)
[2024-06-30] MEDS: PANTOPRAZOLE 40MG TAB (PROTONIX) PO ONE (12:34)
[2024-06-30] MEDS ORDERED: LIDO5TD TD (15:17)
[2024-06-30] MEDS ORDERED: NAPR-849 PO (15:17)
[2024-06-30] MEDS ORDERED: INSUDET SC (15:17)
[2024-06-30] MEDS ORDERED: SENN-52 PO (15:17)
[2024-06-30] MEDS ORDERED: CYCL10TA20 PO (15:17)
[2024-06-30] MEDS ORDERED: METO5TAB2 PO (15:17)
[2024-06-30] MEDS ORDERED: PROT1TAB2 PO (15:17)
[2024-06-30] MEDS ORDERED: TRAM50TA2 PO (15:17)
[2024-06-30] MEDS ORDERED: ONDA-83 PO (15:17)
[2024-06-30] MEDS ORDERED: ACET-683 PO (15:17)
[2024-06-30] MEDS: NAPROXEN 250 MG TAB PO SCH (18:31)
[2024-06-30] MEDS ORDERED: NAPROXEN 250 MG TAB PO ONE (19:00)
[2024-06-30 20:00] VITALS: BP 105/60; TEMP 97.5; O2SAT 98
[2024-06-30 20:30] VITALS: O2SAT 97
[2024-07-01 04:00] VITALS: BP 120/57; TEMP 97.2; O2SAT 95
[2024-07-01] MEDS ORDERED: PANTOPRAZOLE 40MG TAB (PROTONIX) PO SCH (09:00)
== END 2024-07-01 10:55 | disposition home or self-care (01) | DRG 560 ==
LOC: M PM&R 16:35
PROVIDERS: ADMIT Physical Medicine & Rehabilitation; ATTEND Physical Medicine & Rehabilitation
PROC: 30233N1 Transfusion of Nonautologous Red Blood Cells into Peripheral Vein, Percutaneous Approach (ICD-10-PCS; principal; 2024-06-25)
DX: S72.402D Unspecified fracture of lower end of left femur, subsequent encounter for closed fracture with routine healing (principal); E87.1 Hypo-osmolality and hyponatremia; D62 Acute posthemorrhagic anemia; E87.6 Hypokalemia; E83.42 Hypomagnesemia; E11.65 Type 2 diabetes mellitus with hyperglycemia; E11.40 Type 2 diabetes mellitus with diabetic neuropathy, unspecified; E78.5 Hyperlipidemia, unspecified; L40.9 Psoriasis, unspecified; F41.9 Anxiety disorder, unspecified; S32.050D Wedge compression fracture of fifth lumbar vertebra, subsequent encounter for fracture with routine healing; S32.040D Wedge compression fracture of fourth lumbar vertebra, subsequent encounter for fracture with routine healing; D50.9 Iron deficiency anemia, unspecified; K59.00 Constipation, unspecified; Z74.09 Other reduced mobility; Z74.1 Need for assistance with personal care; G89.18 Other acute postprocedural pain; Z96.642 Presence of left artificial hip joint; Z79.4 Long term (current) use of insulin; Z79.899 Other long term (current) drug therapy; Z87.891 Personal history of nicotine dependence

== ENCOUNTER → 2024-07-03 | Outpatient (CLI) | payer MEDICARE ==
[~2024-07-03] MED LIST changes: +ACET-683 PO; +LIDO5TD TD; +METO5TAB2 PO; +NAPR-849 PO; +ONDA-83 PO; +TRAM50TA2 PO
== END ==
LOC: M SOG 07:56
PROVIDERS: ATTEND Orthopaedic Surgery
DX: Z53.21 Procedure and treatment not carried out due to patient leaving prior to being seen by health care provider (principal)

== ENCOUNTER → 2024-07-06 | Outpatient (CLI) | payer MEDICARE | LOC: M SOG 07:59 | PROVIDERS: ATTEND Orthopaedic Surgery | DX: Z47.1 Aftercare following joint replacement surgery (principal); Z96.642 Presence of left artificial hip joint ==

== ENCOUNTER → 2024-08-03 | Outpatient (CLI) | payer MEDICARE | LOC: M SOG 07:23 | PROVIDERS: ATTEND Orthopaedic Surgery | DX: Z96.642 Presence of left artificial hip joint (principal) ==

== ENCOUNTER → 2024-08-12 | Outpatient (CLI) | payer MEDICARE | LOC: M SOG 11:01 | PROVIDERS: ATTEND Orthopaedic Surgery | DX: Z96.642 Presence of left artificial hip joint (principal) ==

== ENCOUNTER → 2024-08-27 | Outpatient (CLI) | payer MEDICARE ==
[2024-08-27 11:47] LABS: BASO # 0.1 10^3/uL (0.0-0.2); BASO % 0.8 % (0.0-1.0); EOS # 0.6 10^3/uL (0.0-0.5); EOS % 5.8 % (0.0-3.0); HEMATOCRIT 43.9 % (42.0-52.0); HEMOGLOBIN 13.4 g/dl (13.5-17.5); LYMPH # 2.3 10^3/uL (1.5-5.0); LYMPH % 21.6 % (24.0-44.0); MEAN CORPUSCULAR HEMOGLOBIN 24.8 pg (27.0-33.0); MEAN CORPUSCULAR HGB CONC 30.5 g/dl (32.0-36.5); MEAN CORPUSCULAR VOLUME 81.3 fl (80.0-96.0); MONO % 9.7 % (2.0-8.0); NEUTROPHILS # 6.5 10^3/uL (1.5-8.5); NEUTROPHILS % 61.8 % (36.0-66.0); PLATELET COUNT, AUTOMATED 323 10^3/uL (150-450); WHITE BLOOD COUNT 10.4 10^3/uL (4.0-10.0)
[2024-08-27 11:53] LABS: PERCENT SATURATION 12.5 % (19.7-50.0)
[2024-08-27 11:56] LABS: FERRITIN 13.7 NG/ML (10.5-307.3)
== END ==
LOC: M WUC 09:01
PROVIDERS: ATTEND Nurse Practitioner Family
DX: D50.9 Iron deficiency anemia, unspecified (principal)

== ENCOUNTER → 2024-09-16 | Outpatient (CLI) | payer MEDICARE | LOC: M SOG 07:49 | PROVIDERS: ATTEND Orthopaedic Surgery | DX: Z96.642 Presence of left artificial hip joint (principal); S72.002D Fracture of unspecified part of neck of left femur, subsequent encounter for closed fracture with routine healing ==

== ENCOUNTER → 2024-09-29 | Outpatient (CLI) | payer MEDICARE | LOC: M PLALAB 13:23 | PROVIDERS: ATTEND Orthopaedic Surgery | DX: M25.552 Pain in left hip (principal) ==

== ENCOUNTER → 2025-01-24 | Outpatient (CLI) | payer MEDICARE | LOC: M SLEEP 20:00 | PROVIDERS: ATTEND Internal Medicine Pulmonary Disease | DX: G47.33 Obstructive sleep apnea (adult) (pediatric) (principal) ==

== ENCOUNTER → 2025-02-09 | Outpatient (CLI) | payer MEDICARE | LOC: M SOG 07:48 | PROVIDERS: ATTEND Orthopaedic Surgery | DX: Z96.642 Presence of left artificial hip joint (principal) ==

== ENCOUNTER 2025-02-11 08:26 | Emergency (ER) | payer BC, MEDICARE ==
[~2025-02-11] VITALS: Ht 193 cm; Wt 98.6 kg
[2025-02-11] MEDS ORDERED: ATOR80TA59 PO (08:49)
[2025-02-11] MEDS ORDERED: METO1TAB32 PO (08:49)
[2025-02-11] MEDS ORDERED: LANTINJ4 SC (08:49)
[2025-02-11] MEDS ORDERED: LOSA25TA13 PO (08:49)
[2025-02-11] MEDS ORDERED: CLOP75TA99 PO (08:49)
[2025-02-11] MEDS ORDERED: METF500T13 PO (08:49)
[2025-02-11] MEDS ORDERED: ASPI81TA26 PO (08:49)
[2025-02-11] MEDS ORDERED: ACET-683 PO (08:49)
[2025-02-11 11:03] VITALS: BP 117/69; TEMP 98; O2SAT 100
== END 2025-02-11 11:05 | disposition home or self-care (01) ==
LOC: M ED 08:26 → MERGE 08:26 → M ED 11:05
DX: S62.306A Unspecified fracture of fifth metacarpal bone, right hand, initial encounter for closed fracture (principal); Y92.410 Unspecified street and highway as the place of occurrence of the external cause; Y93.9 Activity, unspecified; Y99.9 Unspecified external cause status; W01.0XXA Fall on same level from slipping, tripping and stumbling without subsequent striking against object, initial encounter; I10 Essential (primary) hypertension; E78.5 Hyperlipidemia, unspecified; E11.9 Type 2 diabetes mellitus without complications; I25.2 Old myocardial infarction; Z88.5 Allergy status to narcotic agent; Z79.1 Long term (current) use of non-steroidal anti-inflammatories (NSAID); Z79.4 Long term (current) use of insulin; Z79.84 Long term (current) use of oral hypoglycemic drugs; Z79.899 Other long term (current) drug therapy

== ENCOUNTER → 2025-02-14 | Outpatient (CLI) | payer MEDICARE ==
[~2025-02-14] MED LIST changes: +ASPI81TA26 PO; +CLOP75TA99 PO; +LOSA25TA13 PO; +METF500T13 PO; +METO1TAB32 PO
== END ==
LOC: M SLEEP 20:00
PROVIDERS: ATTEND Internal Medicine Pulmonary Disease
DX: G47.33 Obstructive sleep apnea (adult) (pediatric) (principal)

== ENCOUNTER → 2025-02-25 | Outpatient (CLI) | payer MEDICARE ==
[2025-02-25 13:22] LABS: ALBUMIN 3.8 G/DL (3.2-5.2); ALKALINE PHOSPHATASE 122 U/L (40-129); ALT/SGPT 12 U/L (7.0-40); AST/SGOT 12 U/L (<34); BILIRUBIN,TOTAL 0.5 MG/DL (0.3-1.2); BLOOD UREA NITROGEN 17 MG/DL (9-23); CALCIUM LEVEL 9.2 MG/DL (8.3-10.6); CARBON DIOXIDE LEVEL 26 MMOL/L (20-31); CHLORIDE LEVEL 104 MMOL/L (98-107); CHOLESTEROL LEVEL 102 MG/DL (<200); CHOLESTEROL RISK RATIO 2.97 (<5); CREATININE FOR GFR 0.46 MG/DL (0.70-1.30); GLOMERULAR FILTRATION RATE > 90.0 (>49); GLUCOSE, FASTING 158 MG/DL (74-106); HDL CHOLESTEROL 34.3 MG/DL (>40); LDL CHOLESTEROL 51.3 MG/DL (<100); NON-HDL-C 67.7 MG/DL; POTASSIUM SERUM 4.1 MMOL/L (3.5-5.1); PSA SCREENING 0.26 NG/ML (< 4.00); SODIUM LEVEL 138 MMOL/L (136-145); TOTAL PROTEIN 6.8 G/DL (5.7-8.2); TRIGLYCERIDES LEVEL 82 MG/DL (<150)
[2025-02-25 13:59] LABS: HEMOGLOBIN A1c 13.4 % (4.0-6.0)
[2025-02-25 15:41] LABS: CREATININE, URINE 39.5 MG/DL; MAU/CREAT RATIO 10.1 MCG/MG (0.0-30.0)
== END ==
LOC: M PLALAB 08:49
PROVIDERS: ATTEND Nurse Practitioner Family
DX: E11.40 Type 2 diabetes mellitus with diabetic neuropathy, unspecified (principal); Z12.5 Encounter for screening for malignant neoplasm of prostate
CPT/HCPCS: 36415; 80053; 80061; 82043; 83036; G0103

== ENCOUNTER → 2025-09-01 | Outpatient (CLI) | payer MEDICARE ==
[2025-09-01 12:13] LABS: PSA SCREENING 0.39 NG/ML (< 4.00)
[2025-09-01 12:14] LABS: CREATININE, URINE 45.2 MG/DL; MALB URINE SIEMENS < 3.0 MG/L
[2025-09-01 12:15] LABS: ALT/SGPT 13 U/L (7.0-40); AST/SGOT 15 U/L (<34); CALCIUM LEVEL 9.2 MG/DL (8.3-10.6); CARBON DIOXIDE LEVEL 27 MMOL/L (20-31); CHLORIDE LEVEL 105 MMOL/L (98-107); CHOLESTEROL LEVEL 100 MG/DL (<200); CHOLESTEROL RISK RATIO 3.14 (<5); CREATININE FOR GFR 0.57 MG/DL (0.70-1.30); GLOMERULAR FILTRATION RATE > 90.0 (>49); LDL CHOLESTEROL 48.2 MG/DL (<100); NON-HDL-C 68.2 MG/DL; POTASSIUM SERUM 4.5 MMOL/L (3.5-5.1); SODIUM LEVEL 141 MMOL/L (136-145); TRIGLYCERIDES LEVEL 100 MG/DL (<150)
== END ==
LOC: M PLALAB 08:59
PROVIDERS: ATTEND Nurse Practitioner Family
DX: Z00.00 Encounter for general adult medical examination without abnormal findings (principal); E11.40 Type 2 diabetes mellitus with diabetic neuropathy, unspecified; I25.10 Atherosclerotic heart disease of native coronary artery without angina pectoris; Z12.5 Encounter for screening for malignant neoplasm of prostate
CPT/HCPCS: 36415; 80053; 80061; 82043; G0103